=== PATIENT | male | born 1990 | race Hispanic/Latino ===

== ENCOUNTER 2019-02-19 21:55 | Emergency (ER) | payer OTHER | END 2019-02-19 23:33 | disposition home or self-care (01) | LOC: EDH 21:55 | DX: L02.415 Cutaneous abscess of right lower limb (principal) ==

== ENCOUNTER 2023-06-13 15:53 | Emergency (ER) | payer OTHER ==
[~2023-06-13] VITALS: Ht 177.8 cm; Wt 113.4 kg
[2023-06-13 19:19] LABS: BASOPHILS # (AUTO) 0.04 K/uL (0.00-0.20); BASOPHILS % (AUTO) 0.3 % (0.0-5.0); EOSINOPHILS # (AUTO) 0.03 K/uL (0.00-0.70); EOSINOPHILS % (AUTO) 0.2 % (0.0-8.0); HEMATOCRIT 48.5 % (42-54); IMMATURE GRANULOCYTE ABSOLUTE 0.12 K/uL (0-1); LYMPHOCYTES # (AUTO) 1.4 K/uL (1.0-4.8); LYMPHOCYTES % (AUTO) 10.8 % (21.0-51.0); MEAN CORPUSCULAR HEMOGLOBIN 34.5 pg (27.0-33.0); MEAN CORPUSCULAR HGB CONC 36.5 g/dL (32.0-36.0); MEAN CORPUSCULAR VOLUME 94.5 fL (79-99); MONOCYTES # (AUTO) 0.7 K/uL (0.1-1.0); MONOCYTES % (AUTO) 5.8 % (3.0-13.0); NEUTROPHILS # (AUTO) 10.3 K/uL (1.8-7.7); NEUTROPHILS % (AUTO) 81.9 % (40.0-77.0); PLATELET COUNT (AUTO) 182 K/uL (130-400); RED BLOOD CELL COUNT(AUTO) 5.13 MIL/uL (4.50-6.20); RED CELL DISTRIBUTION WIDTH 12.2 % (11.0-15.5); WHITE BLOOD COUNT (AUTO) 12.5 K/uL (4.8-10.8)
[2023-06-13 19:43] LABS: CREATININE 0.8 mg/dL (0.5-1.5); POTASSIUM 3.9 mmol/L (3.5-5.1)
[2023-06-13 19:47] LABS: ALBUMIN 3.8 g/dL (3.5-5.0); BILIRUBIN,TOTAL 0.3 mg/dL (0.2-1.0); TOTAL PROTEIN, SERUM 7.4 g/dL (6.0-8.3)
[2023-06-13] MEDS ORDERED: HYDROMORPHONE 1 MG INJ IVP ONE (20:00)
[2023-06-13] MEDS ORDERED: 0.9%NACL 1000ML 1,000 ML IV SCH (20:30)
[2023-06-14 00:40] VITALS: BP 118/58; PULSE 58; RESP 16; O2SAT 98
== END 2023-06-14 01:05 | disposition short-term general hospital (02) ==
LOC: EDH 15:53
DX: M54.50 Low back pain, unspecified (principal)
CPT/HCPCS: 99285; 72131; 96374; 96361; 80053; 85025; 86850; 86900; 86901; 36415; 72040; 72072; 72192; J1170; J7030